=== PATIENT | female | born 1955 | race Caucasian/White ===

== ENCOUNTER 2021-01-24 08:44 | Outpatient (RCR) | payer MEDICAID, SELFPAY ==
[2021-01-24] MEDS: COVID-19 VACC, MRNA(PFIZER)/PF 30 MCG/0.3 ML SYRINGE IM (07:05)
[2021-02-14] MEDS: COVID-19 VACC, MRNA(PFIZER)/PF 30 MCG/0.3 ML SYRINGE IM (07:11)
== END 2021-01-24 23:59 ==
LOC: IMMUN 08:44
PROVIDERS: PCP Family Medicine; Referring Provider Family Medicine; Visit Provider Family Medicine
DX: Z23 Encounter for immunization (principal)
CPT/HCPCS: 0001A; 0002A; 91300